=== PATIENT | male | born 1980 | race Hispanic/Latino ===

== ENCOUNTER 2018-08-06 01:00 | Emergency (ER) | payer MEDICARE ==
[~2018-08-06 01:00] MED LIST: CARV12.511 PO; MACI10TA PO; OMEP40CA37 PO; SEVE800T7 PO
[2018-08-06 01:56] LABS: BASOPHILS % (AUTO) 1.5 % (0.0-5.0); EOSINOPHILS % (AUTO) 7.1 % (0.0-8.0); HEMATOCRIT 29.7 % (42-54); LYMPHOCYTES % (AUTO) 16.5 % (21.0-51.0); MEAN CORPUSCULAR HEMOGLOBIN 32.6 pg (27.0-33.0); MEAN CORPUSCULAR HGB CONC 33.9 g/dL (32.0-36.0); MEAN CORPUSCULAR VOLUME 96.3 fL (79-99); MONOCYTES % (AUTO) 8.9 % (3.0-13.0); NUCLEATED RED BLOOD CELLS 0.1 % (0.0-0.19); PLATELET COUNT (AUTO) 108 K/uL (130-400); RED BLOOD CELL COUNT(AUTO) 3.08 MIL/uL (4.50-6.20); RED CELL DISTRIBUTION WIDTH 15.6 % (11.0-15.5); WHITE BLOOD COUNT (AUTO) 4.7 K/uL (4.8-10.8)
[2018-08-06 02:05] LABS: POTASSIUM 3.9 mmol/L (3.5-5.1)
[2018-08-06 02:16] LABS: PLATELET MORPHOLOGY COMMENT LARGE PLTS PRESENT
== END 2018-08-06 02:33 | disposition home or self-care (01) ==
LOC: EDH 01:00
DX: T82.838A Hemorrhage due to vascular prosthetic devices, implants and grafts, initial encounter (principal); N18.6 End stage renal disease; Z88.6 Allergy status to analgesic agent; Z99.2 Dependence on renal dialysis
CPT/HCPCS: 36415; 80048; 85025

== ENCOUNTER 2018-11-01 15:55 | Emergency (ER) | payer MEDICARE ==
[2018-11-01 16:20] LABS: EOSINOPHILS % (AUTO) 8.1 % (0.0-8.0); HEMATOCRIT 34.9 % (42-54); LYMPHOCYTES % (AUTO) 15.8 % (21.0-51.0); MEAN CORPUSCULAR HEMOGLOBIN 33.9 pg (27.0-33.0); MEAN CORPUSCULAR HGB CONC 34.1 g/dL (32.0-36.0); MEAN CORPUSCULAR VOLUME 99.4 fL (79-99); MONOCYTES % (AUTO) 10.8 % (3.0-13.0); NEUTROPHILS % (AUTO) 64.3 % (40.0-77.0); NUCLEATED RED BLOOD CELLS 0.1 % (0.0-0.19); PLATELET COUNT (AUTO) 131 K/uL (130-400); RED BLOOD CELL COUNT(AUTO) 3.51 MIL/uL (4.50-6.20); RED CELL DISTRIBUTION WIDTH 15.5 % (11.0-15.5); WHITE BLOOD COUNT (AUTO) 4.8 K/uL (4.8-10.8)
[2018-11-01 16:35] LABS: CREATININE 7.3 mg/dL (0.5-1.5); POTASSIUM 3.7 mmol/L (3.5-5.1)
[2018-11-01 16:38] LABS: INR 2.08 (0.85-1.15); PARTIAL THROMBOPLASTIN TIME 33.8 SEC (26.3-35.5); PROTHROMBIN TIME 21.5 SEC (9.6-11.6)
[2018-11-01 16:40] LABS: ALBUMIN 3.5 g/dL (3.5-5.0); BILIRUBIN,TOTAL 0.7 mg/dL (0.2-1.0); TOTAL PROTEIN, SERUM 8.9 g/dL (6.0-8.3)
[2018-11-01] MEDS ORDERED: NITROGLYCERIN 1GM/1 INCH PACKET TD ONE (17:12)
== END 2018-11-01 23:11 | disposition home or self-care (01) ==
LOC: EDH 15:55
DX: N18.9 Chronic kidney disease, unspecified (principal); R07.89 Other chest pain; K74.60 Unspecified cirrhosis of liver; I48.91 Unspecified atrial fibrillation; I50.9 Heart failure, unspecified; Z99.2 Dependence on renal dialysis; Z88.6 Allergy status to analgesic agent
CPT/HCPCS: 36415; 71045; 80053; 84484; 85025; 85610; 85730; 93005

== ENCOUNTER → 2018-12-16 | Outpatient (CLI) | payer MEDICARE ==
[~2018-12-16] MED LIST changes: +OMEP40CA13 PO; -OMEP40CA37 PO
== END | disposition home or self-care (01) ==
LOC: SHCH 08:28
PROVIDERS: ATTEND Internal Medicine Cardiovascular Disease
DX: I27.20 Pulmonary hypertension, unspecified (principal)
CPT/HCPCS: 93306

== ENCOUNTER 2019-08-08 09:14 | Inpatient (IN) | payer MEDICARE ==
[~2019-08-08] VITALS: Ht 170.2 cm; Wt 70.5 kg
[~2019-08-08 09:14] MED LIST changes: +APIX5TAB PO; +CARV25TA PO; +NITR0.4T50 SL; +TRAZ-187 PO
[2019-08-08 09:44] LABS: EOSINOPHILS % (AUTO) 5.9 % (0.0-8.0); LYMPHOCYTES % (AUTO) 23.3 % (21.0-51.0); MEAN CORPUSCULAR HEMOGLOBIN 33.3 pg (27.0-33.0); MEAN CORPUSCULAR HGB CONC 31.5 g/dL (32.0-36.0); MEAN CORPUSCULAR VOLUME 105.9 fL (79-99); MONOCYTES % (AUTO) 7.7 % (3.0-13.0); NEUTROPHILS % (AUTO) 61.6 % (40.0-77.0); PLATELET COUNT (AUTO) 227 K/uL (130-400); RED BLOOD CELL COUNT(AUTO) 1.53 MIL/uL (4.50-6.20); RED CELL DISTRIBUTION WIDTH 22.6 % (11.0-15.5)
[2019-08-08 09:54] LABS: HEMATOCRIT 16.2 % (42-54)
[2019-08-08 10:00] LABS: INR 1.18 (0.85-1.15); PARTIAL THROMBOPLASTIN TIME 27.8 SEC (26.3-35.5); PROTHROMBIN TIME 12.7 SEC (9.6-11.6)
[2019-08-08 10:11] LABS: ALBUMIN 2.7 g/dL (3.5-5.0); ASPARTATE AMINOTRANSFERASE 8 U/L (10-37); BILIRUBIN,TOTAL 0.4 mg/dL (0.2-1.0); CARBON DIOXIDE 26 mmol/L (21-32); CHLORIDE 101 mmol/L (101-111); GLOMERULAR FILTR. RATE CALC 5 mL/min (>60); GLUCOSE,RANDOM 89 mg/dL (70-105); SODIUM SERUM 138 mmol/L (136-145); TOTAL PROTEIN, SERUM 6.9 g/dL (6.0-8.3); UREA NITROGEN, BLOOD 52 mg/dL (7-18)
[2019-08-08 10:12] LABS: ALANINE AMINOTRANSFERASE < 6 U/L (12-78)
[2019-08-08 10:14] LABS: CREATININE 11.1 mg/dL (0.5-1.5)
[2019-08-08] MEDS ORDERED: FAMOTIDINE/PF 20 MG/2 ML VIAL IV ONE (10:54)
[2019-08-08] MEDS ORDERED: ACETAMINOPHEN 325 MG TAB PO PRN (12:45)
[2019-08-08] MEDS ORDERED: ONDANSETRON HCL 4 MG/2 ML VIAL IVP PRN (12:45)
[2019-08-08] MEDS ORDERED: SODIUM CHLORIDE 0.9% 10 ML VIAL IVP PRN (12:45)
[2019-08-08] MEDS: PANTOPRAZOLE 40 MG/VIAL IVP SCH (14:00)
[2019-08-08] MEDS ORDERED: SODIUM CHLORIDE 0.9% 250 ML IV ONE (14:37)
--- NOTE | 2019-08-08 20:30 | NUR ---
ADMIT PT ADMITTED TO ROOM 321, AAOX3. HD NURSE ALREADY SET UP IN ROOM FOR TREATMENT. ADMISSION CARE DONE. ADMISSION DATA BASE COMPLETED. ORIENTED TO ROOM AND UNIT. IN FOR MORE CARE AND MANAGEMENT. Addendum: 08/08/19 at 2229 by KAREN MASON RN RN Amended: Links added.
[2019-08-08] MEDS ORDERED: OMEP40CA13 PO (20:59)
--- NOTE | 2019-08-08 21:25 | NUR ---
[facility] CHECKED UNIT OF PRBC WITH DEB HICKS. UNIT GIVEN TO HD NURSE FOR INFUSION.
--- NOTE | 2019-08-08 22:25 | NUR ---
COMPLETED HD NURSE INFORMED RAILROAD ENGINEER THAT BLOOD TRANSFUSION IS COMPLETED WITHOUT ANY UNTOWARD S/SX. HD TREATMENT STILL ONGOING AT THIS TIME. PT RESTING IN BED WELL. NO NOTED DISTRESS.
[2019-08-08 23:29] VITALS: BP 129/50
--- NOTE | 2019-08-08 23:52 | NUR ---
DONE HD NURSE INFORMS BI SOLUTIONS ARCHITECT THAT TREATMENT IS DONE AND 2.7 LI WAS TAKEN OUT.
[2019-08-09] MEDS: CARVEDILOL 12.5 MG TABLET PO SCH ×3 (00:55→20:40)
--- NOTE | 2019-08-09 02:00 | NUR ---
ROUNDS PT RESTING IN BED, DENIES ANY NEEDS AT THIS TIME. NO DISTRESS NOTED. KEPT COMFORTABLE AND RESTED. ENCOURAGED TO BE COMFORTABLE TO SLEEP. WILL MONITOR PT. CALL LIGHT WITHIN REACH.
[2019-08-09 03:32] VITALS: BP 115/68
[2019-08-09 04:24] LABS: MEAN CORPUSCULAR HEMOGLOBIN 31.3 pg (27.0-33.0); MEAN CORPUSCULAR VOLUME 94.8 fL (79-99); RED BLOOD CELL COUNT(AUTO) 2.11 MIL/uL (4.50-6.20); RED CELL DISTRIBUTION WIDTH 23.2 % (11.0-15.5); WHITE BLOOD COUNT (AUTO) 3.5 K/uL (4.8-10.8)
[2019-08-09 04:50] LABS: CREATININE 7.1 mg/dL (0.5-1.5); PHOSPHORUS 3.9 mg/dL (2.5-4.9); POTASSIUM 3.2 mmol/L (3.5-5.1)
--- NOTE | 2019-08-09 05:34 | NUR ---
PAGED DR HICKS PAGED VIA ANSWERING SERVICE TO REFER CRITICAL VALUES OF H/H=6.6 AND 20, AWAITING CALL BACK.
[2019-08-09 08:57] VITALS: BP 116/51
[2019-08-09] MEDS ORDERED: SODIUM CHLORIDE 0.9% 250 ML IV ONE (09:15)
[2019-08-09] MEDS: PANTOPRAZOLE 40 MG/VIAL IVP SCH (09:33)
[2019-08-09 12:10] VITALS: BP 134/66
--- NOTE | 2019-08-09 12:54 | NUR ---
DCP CM met with pt discussed dc plans. Pt is independent prior to admission, lives at home with spouse. Pt has a walker, goes to [facility]. Denies any other equipments/services. Feels safe to go back home, still drives, spouse able to assist with transportation and needs as necessary. DC plan to home once stable. CM to cont to follow up. Addendum: 08/09/19 at 1256 by YUKI PISANO LVN CM Amended: Links added.
[2019-08-09 16:30] VITALS: BP 164/84
[2019-08-09] MEDS ORDERED: PEG 3350/NA SULF,BICARB,CL/KCL 4000 ML SOLN PO ONE (17:00)
[2019-08-09] MEDS ORDERED: PEG 3350/NA SULF,BICARB,CL/KCL 4000 ML SOLN ONE (18:04)
[2019-08-09 19:45] VITALS: BP 122/69
[2019-08-09 23:48] VITALS: BP 109/43
[2019-08-10] VITALS (23 sets, daily range): BP systolic 107–139; BP diastolic 46–95
[2019-08-10 06:02] LABS: HEMATOCRIT 23.7 % (42-54); MEAN CORPUSCULAR HEMOGLOBIN 30.3 pg (27.0-33.0); MEAN CORPUSCULAR HGB CONC 32.5 g/dL (32.0-36.0); MEAN CORPUSCULAR VOLUME 93.3 fL (79-99); PLATELET COUNT (AUTO) 200 K/uL (130-400); RED BLOOD CELL COUNT(AUTO) 2.54 MIL/uL (4.50-6.20); RED CELL DISTRIBUTION WIDTH 21.4 % (11.0-15.5); WHITE BLOOD COUNT (AUTO) 4.1 K/uL (4.8-10.8)
[2019-08-10 06:18] LABS: POTASSIUM 3.8 mmol/L (3.5-5.1)
[2019-08-10 06:44] LABS: BASOPHILS % (MANUAL) 4 % (0-2); EOSINOPHILS % (MANUAL) 9 % (1-6); LYMPHOCYTES % (MANUAL) 18 % (22-44); MONOCYTES % (MANUAL) 10 % (2-9); SEGMENTED NEUTROPHILS % 59 % (40-70)
[2019-08-10 06:45] LABS: MAN.DIFF COMMENT-IMPRESSION MANUAL DIFFERENTIAL; PLATELET MORPHOLOGY COMMENT ADEQUATE
[2019-08-10 07:02] LABS: CREATININE 9.3 mg/dL (0.5-1.5)
[2019-08-10] MEDS ORDERED: PROPOFOL 10 MG/ML 20ML VIAL IV ONE (08:37)
[2019-08-10] MEDS ORDERED: EPINEPHRINE 1 MG/ML AMPULE ONE (08:43)
[2019-08-10] MEDS: PANTOPRAZOLE 40 MG/VIAL IVP SCH (09:51)
[2019-08-10] MEDS: CARVEDILOL 12.5 MG TABLET PO SCH ×2 (09:52→20:27)
[2019-08-10 10:12] LABS: HEPATITIS A ANTIBODY IGM Negative (Negative); HEPATITIS B CORE IGM Negative (Negative); HEPATITIS Bs ANTIGEN SCREEN P Negative (Negative)
--- NOTE | 2019-08-10 14:22 | NUR ---
RD NOTIFICATION Pt admitted for ESRD, GI Bleed. Pt with Full Liquid Diet order in place. Pending EGD, Colonoscopy per EMR. Pt receiving hemodialysis at time of visit. No report of GI distress. RD to follow up with nutrition education. Recommend Heart healthy, Renal Dialysis Diet order when medically feasible RD to follow up with Nutrition education RD to continue to monitor. Please notify as additional nutrition concerns arise. Thank you. Addendum: 08/10/19 at [address] RD Amended: Links added.
--- NOTE | 2019-08-10 15:20 | NUR ---
143 BPCI Letter given to patient.
--- NOTE | 2019-08-10 15:51 | NUR ---
NUTRITION EDUCATION RODERICK provided Dialysis Nutrition Education to Pt. RD reviewed reference materials and handouts. Pt denies need for Cirrhosis nutrition education, declines reference materials. RODERICK answered all of Pt questions. RD to follow up. Addendum: 08/10/19 at [address] Amended: Links added.
[2019-08-10] MEDS: EPOETIN ALFA 10,000 UNIT/ML VIAL SQ SCH (17:13)
[2019-08-11 03:50] VITALS: BP 107/48
[2019-08-11 05:33] LABS: MEAN CORPUSCULAR HEMOGLOBIN 31.2 pg (27.0-33.0); MEAN CORPUSCULAR HGB CONC 32.9 g/dL (32.0-36.0); MEAN CORPUSCULAR VOLUME 94.9 fL (79-99); RED BLOOD CELL COUNT(AUTO) 2.53 MIL/uL (4.50-6.20); RED CELL DISTRIBUTION WIDTH 20.1 % (11.0-15.5); WHITE BLOOD COUNT (AUTO) 3.4 K/uL (4.8-10.8)
[2019-08-11 05:45] LABS: CREATININE 7.2 mg/dL (0.5-1.5); POTASSIUM 3.8 mmol/L (3.5-5.1)
[2019-08-11 08:58] VITALS: BP 136/61
[2019-08-11] MEDS: CARVEDILOL 12.5 MG TABLET PO SCH ×2 (09:37→20:46)
[2019-08-11] MEDS: PANTOPRAZOLE 40 MG/VIAL IVP SCH (09:39)
[2019-08-11 12:09] VITALS: BP 128/56
[2019-08-11 16:10] VITALS: BP 135/48
[2019-08-11 19:31] VITALS: BP 117/58
[2019-08-11 23:35] VITALS: BP 109/46
[2019-08-12 03:54] VITALS: BP 109/47
[2019-08-12 04:30] LABS: HEMATOCRIT 23.8 % (42-54); MEAN CORPUSCULAR HEMOGLOBIN 30.6 pg (27.0-33.0); MEAN CORPUSCULAR HGB CONC 32.4 g/dL (32.0-36.0); MEAN CORPUSCULAR VOLUME 94.4 fL (79-99); RED BLOOD CELL COUNT(AUTO) 2.52 MIL/uL (4.50-6.20); RED CELL DISTRIBUTION WIDTH 19.3 % (11.0-15.5); WHITE BLOOD COUNT (AUTO) 3.9 K/uL (4.8-10.8)
[2019-08-12 04:44] LABS: PHOSPHORUS 5.7 mg/dL (2.5-4.9); POTASSIUM 3.6 mmol/L (3.5-5.1)
[2019-08-12 04:50] LABS: CREATININE 9.7 mg/dL (0.5-1.5)
[2019-08-12 07:00] VITALS: BP 120/69
--- NOTE | 2019-08-12 07:31 | NUR ---
Patient stable,with ongoing hemodialysis treatment at this time, bedside report given to incoming NOD,using SBAR all questions answered.Patient expressed concerned regarding paracentesis that was scheduled yesterday at the other hospital.Will address issue today.
--- NOTE | 2019-08-12 07:50 | NUR ---
ASSESSMENT ENCOUNTERED PT A&OX3, CALM COOPERATIVE AND DOES NOT APPEAR TO BE IN ANY DISTRESS NOR ANY NEURO DEFICITS PRESENT. PT DENIES PAIN, SOB, NAUSEA. PT IS AMBULATORY, GAIT STEADY AND STRONG WITH STAND BY ASSIST, PT IS PENDING HEMODIALYSIS. CALL LIGHT WITHIN REACH.
[2019-08-12] MEDS: CARVEDILOL 12.5 MG TABLET PO SCH (09:00)
[2019-08-12] MEDS: PANTOPRAZOLE 40 MG/VIAL IVP SCH (09:00)
[2019-08-12 11:00] VITALS: BP 112/63
[2019-08-12] MEDS ORDERED: FOLI1TAB61 PO (13:59)
[2019-08-12] MEDS: EPOETIN ALFA 10,000 UNIT/ML VIAL SQ SCH (16:03)
[2019-08-12] MEDS ORDERED: Vitamin B Complex/Vit C/Folic Acid ONE (16:12)
--- NOTE | 2019-08-12 16:30 | NUR ---
DISCHARGE INSTRUCTIONS GIVEN, PIV REMOVED AND INTACT, DISCHARGE HOME TO FAMILY VEHICLE VIA WHEELCHAIR
== END 2019-08-12 16:45 | disposition home or self-care (01) | DRG 377 ==
LOC: EDH 09:14 → EDHIP 12:28 → 4DH 20:08
PROVIDERS: ADMIT Internal Medicine Nephrology; ATTEND Internal Medicine Nephrology
PROC: 30233N1 Transfusion of Nonautologous Red Blood Cells into Peripheral Vein, Percutaneous Approach (ICD-10-PCS; principal; 2019-08-08)
PROC: 5A1D70Z Performance of Urinary Filtration, Intermittent, Less than 6 Hours Per Day (ICD-10-PCS; 2019-08-08)
PROC: 0DBL8ZZ Excision of Transverse Colon, Via Natural or Artificial Opening Endoscopic (ICD-10-PCS; 2019-08-10)
PROC: 0W3P8ZZ Control Bleeding in Gastrointestinal Tract, Via Natural or Artificial Opening Endoscopic (ICD-10-PCS; 2019-08-10)
PROC: 5A1D70Z Performance of Urinary Filtration, Intermittent, Less than 6 Hours Per Day (ICD-10-PCS; 2019-08-10)
PROC: 5A1D70Z Performance of Urinary Filtration, Intermittent, Less than 6 Hours Per Day (ICD-10-PCS; 2019-08-12)
DX: K31.811 Angiodysplasia of stomach and duodenum with bleeding (principal); N18.6 End stage renal disease; Q20.4 Double inlet ventricle; I42.0 Dilated cardiomyopathy; D68.59 Other primary thrombophilia; I12.0 Hypertensive chronic kidney disease with stage 5 chronic kidney disease or end stage renal disease; I48.20 Chronic atrial fibrillation, unspecified; K74.60 Unspecified cirrhosis of liver; I25.10 Atherosclerotic heart disease of native coronary artery without angina pectoris; F32.9 Major depressive disorder, single episode, unspecified; M10.9 Gout, unspecified; D50.0 Iron deficiency anemia secondary to blood loss (chronic); E11.22 Type 2 diabetes mellitus with diabetic chronic kidney disease; I27.20 Pulmonary hypertension, unspecified; I85.10 Secondary esophageal varices without bleeding; K57.90 Diverticulosis of intestine, part unspecified, without perforation or abscess without bleeding; D50.9 Iron deficiency anemia, unspecified; K64.0 First degree hemorrhoids; K63.5 Polyp of colon; K57.30 Diverticulosis of large intestine without perforation or abscess without bleeding; K64.9 Unspecified hemorrhoids; N28.1 Cyst of kidney, acquired; Z79.01 Long term (current) use of anticoagulants; Z86.711 Personal history of pulmonary embolism; Z91.11 Patient's noncompliance with dietary regimen; Z99.2 Dependence on renal dialysis
CPT/HCPCS: 36415; 43255; 45380; 71045; 80048; 80053; 80074; 82270; 82948; 83690; 83880; 84100; 84484; 85025; 85027; 85610; 85730; 86156; 86850; 86870; 86900; 86901; 86922; 88305; 90935; 93005; A4606; C9113; G0378; J0171; J0885; J2405; J2704; J3490; J7030; J7050; P9016

== ENCOUNTER 2019-09-24 14:11 | Inpatient (IN) | payer MEDICARE ==
[~2019-09-24] VITALS: Ht 170.2 cm; Wt 70.1 kg
[~2019-09-24 14:11] MED LIST changes: -APIX5TAB PO; -CARV25TA PO; +FOLI1TAB61 PO; -TRAZ-187 PO
[2019-09-24 15:24] LABS: BASOPHILS % (AUTO) 0.7 % (0.0-5.0); EOSINOPHILS % (AUTO) 5.7 % (0.0-8.0); LYMPHOCYTES % (AUTO) 18.1 % (21.0-51.0); MEAN CORPUSCULAR HEMOGLOBIN 31.8 pg (27.0-33.0); MEAN CORPUSCULAR HGB CONC 31.2 g/dL (32.0-36.0); MEAN CORPUSCULAR VOLUME 101.8 fL (79-99); MONOCYTES % (AUTO) 8.8 % (3.0-13.0); NEUTROPHILS % (AUTO) 66.5 % (40.0-77.0); PLATELET COUNT (AUTO) 201 K/uL (130-400); RED CELL DISTRIBUTION WIDTH 18.8 % (11.0-15.5); WHITE BLOOD COUNT (AUTO) 4.2 K/uL (4.8-10.8)
[2019-09-24 15:30] LABS: HEMATOCRIT 17.3 % (42-54)
[2019-09-24 15:35] LABS: CREATININE 7.8 mg/dL (0.5-1.5)
[2019-09-24 15:36] LABS: INR 1.21 (0.85-1.15)
[2019-09-24 15:39] LABS: ALBUMIN 2.9 g/dL (3.5-5.0); BILIRUBIN,TOTAL 0.4 mg/dL (0.2-1.0); TOTAL PROTEIN, SERUM 7.5 g/dL (6.0-8.3)
[2019-09-24] MEDS ORDERED: CEFTRIAXONE SODIUM 2 GM VIAL ONE (16:25)
[2019-09-24] MEDS ORDERED: SODIUM CHLORIDE 0.9% 50 ML IV ONE (16:28)
[2019-09-24] MEDS ORDERED: PHYTONADIONE 10 MG/1 ML AMP ONE (16:42)
[2019-09-24] MEDS ORDERED: ONDANSETRON HCL 4 MG/2 ML VIAL IV PRN (17:00)
[2019-09-24] MEDS ORDERED: CEFTRIAXONE SODIUM 1 GM IV SCH (17:00)
[2019-09-24] MEDS ORDERED: OCTREOTIDE ACETATE 1,250 MCG in SODIUM CHLORIDE 0.9% 250 ML IV SCH (17:00)
[2019-09-24] MEDS ORDERED: LACTULOSE 20 GM/30 ML UDCUP PO PRN (17:00)
[2019-09-24] MEDS ORDERED: HYDRALAZINE HCL 20 MG/ML VIAL IV PRN (17:00)
[2019-09-24] MEDS ORDERED: PANTOPRAZOLE SODIUM 80 MG in SODIUM CHLORIDE 0.9% 100 ML IV SCH (17:07)
[2019-09-24] MEDS ORDERED: AZITHROMYCIN 500MG+NS 250ML 250 ML IV SCH (17:30)
[2019-09-24] MEDS ORDERED: SODIUM CHLORIDE 0.9% 100 ML IV ONE (17:55)
[2019-09-24] MEDS ORDERED: OCTREOTIDE ACETATE 100 MCG/ML AMP ONE (18:25)
[2019-09-24] MEDS ORDERED: SODIUM CHLORIDE 0.9% 500ML 500 ML IV ONE (20:03)
[2019-09-25 04:01] LABS: EOSINOPHILS % (AUTO) 6.5 % (0.0-8.0); HEMATOCRIT 24.1 % (42-54); LYMPHOCYTES % (AUTO) 16.8 % (21.0-51.0); MEAN CORPUSCULAR HEMOGLOBIN 31.4 pg (27.0-33.0); MEAN CORPUSCULAR VOLUME 98.4 fL (79-99); MONOCYTES % (AUTO) 7.3 % (3.0-13.0); NEUTROPHILS % (AUTO) 68.1 % (40.0-77.0); PLATELET COUNT (AUTO) 206 K/uL (130-400); RED BLOOD CELL COUNT(AUTO) 2.45 MIL/uL (4.50-6.20); RED CELL DISTRIBUTION WIDTH 19.8 % (11.0-15.5); WHITE BLOOD COUNT (AUTO) 5.7 K/uL (4.8-10.8)
[2019-09-25 04:22] LABS: POTASSIUM 5.7 mmol/L (3.5-5.1)
[2019-09-25 04:39] LABS: CREATININE 8.7 mg/dL (0.5-1.5)
[2019-09-25] MEDS ORDERED: MIDODRINE HCL 5 MG TABLET ONE ×3 (05:52→14:47)
[2019-09-25] MEDS ORDERED: SODIUM POLYSTYRENE SULFONATE 15 GM/60 ML ML PO SCH (08:00)
[2019-09-25] MEDS ORDERED: SODIUM POLYSTYRENE SULFONATE 15 GM/60 ML ML ONE (08:22)
[2019-09-25 08:42] LABS: BASOPHILS % (AUTO) 1.3 % (0.0-5.0); HEMATOCRIT 23.8 % (42-54); LYMPHOCYTES % (AUTO) 17.9 % (21.0-51.0); MEAN CORPUSCULAR HEMOGLOBIN 31.3 pg (27.0-33.0); MEAN CORPUSCULAR HGB CONC 31.9 g/dL (32.0-36.0); MEAN CORPUSCULAR VOLUME 97.9 fL (79-99); MONOCYTES % (AUTO) 9.6 % (3.0-13.0); NEUTROPHILS % (AUTO) 63.8 % (40.0-77.0); PLATELET COUNT (AUTO) 208 K/uL (130-400); RED BLOOD CELL COUNT(AUTO) 2.43 MIL/uL (4.50-6.20); RED CELL DISTRIBUTION WIDTH 19.9 % (11.0-15.5); WHITE BLOOD COUNT (AUTO) 4.7 K/uL (4.8-10.8)
[2019-09-25 08:57] LABS: PHOSPHORUS 5.1 mg/dL (2.5-4.9)
[2019-09-25 09:01] LABS: POTASSIUM 6.3 mmol/L (3.5-5.1)
--- NOTE | 2019-09-25 17:16 | NUR ---
INITIAL SW spoke with patient's spouse, Honey Arriaga. Patient lives with spouse. No home health but does have PHC with [facility] X 15 1/2 hours a week. Dialysis: MWF 5am at [facility]. Patient drives self or family assists with transportation. DME: BPM, oximeter, O2 concentrator/portable, rollator. DME company is [employer]. Patient is able to complete ADL's independently but at times needs help. PCP is Ronald DOUGHERTY. Pharmacy is [facility] in [place]. DCP is home. Addendum: 09/25/19 at 1721 by RATNA MONIQUE SS Amended: Links added.
[2019-09-25 19:27] LABS: BASOPHILS % (AUTO) 1.5 % (0.0-5.0); EOSINOPHILS % (AUTO) 6.9 % (0.0-8.0); HEMATOCRIT 24.4 % (42-54); LYMPHOCYTES % (AUTO) 13.8 % (21.0-51.0); MEAN CORPUSCULAR HEMOGLOBIN 31.7 pg (27.0-33.0); MEAN CORPUSCULAR HGB CONC 32.8 g/dL (32.0-36.0); MEAN CORPUSCULAR VOLUME 96.8 fL (79-99); MONOCYTES % (AUTO) 8.1 % (3.0-13.0); NEUTROPHILS % (AUTO) 69.5 % (40.0-77.0); PLATELET COUNT (AUTO) 224 K/uL (130-400); RED BLOOD CELL COUNT(AUTO) 2.52 MIL/uL (4.50-6.20); RED CELL DISTRIBUTION WIDTH 19.9 % (11.0-15.5); WHITE BLOOD COUNT (AUTO) 5.2 K/uL (4.8-10.8)
[2019-09-25 19:43] LABS: CREATININE 5.5 mg/dL (0.5-1.5); POTASSIUM 3.6 mmol/L (3.5-5.1)
[2019-09-25 19:49] LABS: BILIRUBIN,TOTAL 0.4 mg/dL (0.2-1.0); TOTAL PROTEIN, SERUM 7.8 g/dL (6.0-8.3)
[2019-09-25] MEDS ORDERED: AZITHROMYCIN 500MG+NS 250ML 250 ML IV ONE (20:33)
[2019-09-25] MEDS ORDERED: CEFTRIAXONE SODIUM 1 GM ONE (20:33)
[2019-09-25] MEDS ORDERED: SODIUM CHLORIDE 0.9% 250 ML IV ONE (21:30)
[2019-09-25] MEDS ORDERED: OCTREOTIDE ACETATE 200 MCG/ML 5 ML VIAL ONE (21:35)
[2019-09-26] MEDS ORDERED: MIDODRINE HCL 5 MG TABLET ONE ×2 (00:32→08:48)
[2019-09-26] MEDS ORDERED: SODIUM CHLORIDE 0.9% 100 ML IV ONE (05:21)
[2019-09-26 06:35] LABS: BASOPHILS % (AUTO) 1.5 % (0.0-5.0); EOSINOPHILS % (AUTO) 7.7 % (0.0-8.0); HEMATOCRIT 23.8 % (42-54); MEAN CORPUSCULAR HGB CONC 31.5 g/dL (32.0-36.0); MEAN CORPUSCULAR VOLUME 98.3 fL (79-99); MONOCYTES % (AUTO) 10.7 % (3.0-13.0); NEUTROPHILS % (AUTO) 60.9 % (40.0-77.0); PLATELET COUNT (AUTO) 213 K/uL (130-400); RED BLOOD CELL COUNT(AUTO) 2.42 MIL/uL (4.50-6.20); RED CELL DISTRIBUTION WIDTH 19.8 % (11.0-15.5); WHITE BLOOD COUNT (AUTO) 4.8 K/uL (4.8-10.8)
[2019-09-26 06:57] LABS: ALBUMIN 2.7 g/dL (3.5-5.0); BILIRUBIN,TOTAL 0.4 mg/dL (0.2-1.0); MAGNESIUM 2.1 mg/dL (1.80-2.40); PHOSPHORUS 5.3 mg/dL (2.5-4.9); POTASSIUM 4.2 mmol/L (3.5-5.1); TOTAL PROTEIN, SERUM 6.8 g/dL (6.0-8.3)
[2019-09-26 07:06] LABS: CREATININE 8.1 mg/dL (0.5-1.5)
[2019-09-26] MEDS ORDERED: AZIT500T2 PO (07:41)
--- NOTE | 2019-09-26 09:29 | NUR ---
PT GIVEN HIS PRINTED AND VERBAL DISCHARGE INSTRUCTIONS. VERBALIZES UNDERSTANDING. WILL DC AFTER DIALYSIS TODAY. ER NURSE JANICE BOYD MADE AWARE
== END 2019-09-26 19:47 | disposition home or self-care (01) | DRG 377 ==
LOC: EDH 14:11 → EDHIP 14:34
PROVIDERS: ADMIT Hospitalist; ATTEND Hospitalist
PROC: 30233N1 Transfusion of Nonautologous Red Blood Cells into Peripheral Vein, Percutaneous Approach (ICD-10-PCS; 2019-09-24)
PROC: 5A1D70Z Performance of Urinary Filtration, Intermittent, Less than 6 Hours Per Day (ICD-10-PCS; principal; 2019-09-25)
PROC: 5A1D70Z Performance of Urinary Filtration, Intermittent, Less than 6 Hours Per Day (ICD-10-PCS; 2019-09-26)
DX: K92.2 Gastrointestinal hemorrhage, unspecified (principal); J18.9 Pneumonia, unspecified organism; N18.6 End stage renal disease; I48.21 Permanent atrial fibrillation; D64.9 Anemia, unspecified; E87.5 Hyperkalemia; K74.60 Unspecified cirrhosis of liver; Z99.2 Dependence on renal dialysis; Z79.01 Long term (current) use of anticoagulants; Z86.711 Personal history of pulmonary embolism; Z95.1 Presence of aortocoronary bypass graft; Z88.8 Allergy status to other drugs, medicaments and biological substances; Z82.0 Family history of epilepsy and other diseases of the nervous system; Z82.3 Family history of stroke; Z83.3 Family history of diabetes mellitus; Z82.5 Family history of asthma and other chronic lower respiratory diseases; Z82.49 Family history of ischemic heart disease and other diseases of the circulatory system
CPT/HCPCS: 36415; 71045; 80048; 80053; 82270; 83735; 84100; 84132; 84484; 85025; 85610; 85730; 86156; 86850; 86870; 86900; 86901; 86922; 90935; 93005; C9113; G0378; J0456; J0696; J2354; J3430; J7040; J7050; P9016

== ENCOUNTER 2019-12-29 11:20 | Inpatient (IN) | payer MEDICARE ==
[~2019-12-29] VITALS: Ht 170.2 cm; Wt 64.0 kg
[~2019-12-29 11:20] MED LIST changes: +AZIT500T2 PO
[2019-12-29 12:07] LABS: BASOPHILS % (AUTO) 1.5 % (0.0-5.0); EOSINOPHILS % (AUTO) 7.9 % (0.0-8.0); HEMATOCRIT 36.1 % (42-54); LYMPHOCYTES % (AUTO) 19.8 % (21.0-51.0); MEAN CORPUSCULAR HEMOGLOBIN 29.5 pg (27.0-33.0); MEAN CORPUSCULAR HGB CONC 31.9 g/dL (32.0-36.0); MEAN CORPUSCULAR VOLUME 92.6 fL (79-99); MONOCYTES % (AUTO) 9.9 % (3.0-13.0); NEUTROPHILS % (AUTO) 60.6 % (40.0-77.0); PLATELET COUNT (AUTO) 148 K/uL (130-400); WHITE BLOOD COUNT (AUTO) 3.9 K/uL (4.8-10.8)
[2019-12-29] MEDS ORDERED: MORPHINE SULFATE 4 MG/1ML SYG ONE (12:17)
[2019-12-29] MEDS ORDERED: ONDANSETRON HCL 4 MG/2 ML VIAL ONE (12:17)
[2019-12-29 12:23] LABS: ALBUMIN 3.4 g/dL (3.5-5.0); BILIRUBIN,TOTAL 0.6 mg/dL (0.2-1.0); POTASSIUM 3.8 mmol/L (3.5-5.1); TOTAL PROTEIN, SERUM 8.8 g/dL (6.0-8.3)
[2019-12-29] MEDS ORDERED: ONDANSETRON HCL 4 MG/2 ML VIAL IV PRN (13:00)
[2019-12-29] MEDS: SODIUM CHLORIDE 0.9% 1000ML 1,000 ML IV SCH (13:00)
[2019-12-29] MEDS ORDERED: LACTULOSE 20 GM/30 ML UDCUP PO PRN (13:00)
[2019-12-29] MEDS ORDERED: NITROGLYCERIN 0.4 MG SL TAB SL PRN (13:00)
[2019-12-29 13:14] LABS: CREATININE 8.3 mg/dL (0.5-1.5)
[2019-12-29] MEDS ORDERED: ZOSYN 3.375GM+NS 50ML 50 ML IV ONE (14:09)
[2019-12-29 14:27] LABS: INR 1.21 (0.85-1.15)
[2019-12-29 16:29] VITALS: BP 110/74
[2019-12-29 19:00] VITALS: BP 109/58
[2019-12-29] MEDS ORDERED: TRAZ-185 PO (19:23)
[2019-12-29] MEDS ORDERED: DOXY20TA3 PO (19:23)
[2019-12-29] MEDS: FAMOTIDINE/PF 20 MG/2 ML VIAL IV SCH (20:28)
[2019-12-30] VITALS (30 sets, daily range): BP systolic 93–131; BP diastolic 55–75
[2019-12-30] MEDS: MORPHINE SULFATE 2 MG/ML 1ML SYG IVP PRN ×3 (02:28→17:33)
[2019-12-30 05:44] LABS: BASOPHILS % (AUTO) 1.3 % (0.0-5.0); EOSINOPHILS % (AUTO) 10.1 % (0.0-8.0); HEMATOCRIT 30.9 % (42-54); LYMPHOCYTES % (AUTO) 20.2 % (21.0-51.0); MEAN CORPUSCULAR HEMOGLOBIN 29.5 pg (27.0-33.0); MONOCYTES % (AUTO) 10.9 % (3.0-13.0); NEUTROPHILS % (AUTO) 57.2 % (40.0-77.0); PLATELET COUNT (AUTO) 127 K/uL (130-400); RED BLOOD CELL COUNT(AUTO) 3.36 MIL/uL (4.50-6.20); RED CELL DISTRIBUTION WIDTH 15.3 % (11.0-15.5); WHITE BLOOD COUNT (AUTO) 3.9 K/uL (4.8-10.8)
[2019-12-30 05:55] LABS: ALBUMIN 2.8 g/dL (3.5-5.0); BILIRUBIN,TOTAL 0.5 mg/dL (0.2-1.0); POTASSIUM 4.5 mmol/L (3.5-5.1); TOTAL PROTEIN, SERUM 7.5 g/dL (6.0-8.3)
[2019-12-30 06:16] LABS: CREATININE 9.9 mg/dL (0.5-1.5)
[2019-12-30] MEDS ORDERED: KETAMINE 50MG/ML SYRINGE 50 MG/ML DISP.SYRIN IV ONE (08:01)
[2019-12-30] MEDS ORDERED: PROPOFOL 10 MG/ML 20ML VIAL IV ONE (08:01)
[2019-12-30] MEDS ORDERED: ROCURONIUM 10MG/1ML SYR 10 MG/ML ML ONE (08:01)
[2019-12-30] MEDS: SODIUM CHLORIDE 0.9% 1000ML 1,000 ML IV SCH (08:19)
[2019-12-30] MEDS: CARVEDILOL 12.5 MG TABLET PO SCH ×2 (09:15→20:14)
[2019-12-30] MEDS: FAMOTIDINE/PF 20 MG/2 ML VIAL IV SCH ×2 (09:15→20:14)
[2019-12-30] MEDS ORDERED: SODIUM CHLORIDE 0.9% 500ML 500 ML IV SCH (10:00)
--- NOTE | 2019-12-30 10:13 | NUR ---
PT IN HOLDING AREA RM 2. SALVATORE LOAN COUNSELOR AT BEDSIDE. INFORMED LOAN COUNSELOR OF GLUCOSE 57. IV RAJEEV KVO. NO ACUTE DISTRESS NOTED
[2019-12-30] MEDS ORDERED: SUCCINYLCHOLINE CHLORIDE 20 MG/ML 10 ML VIAL ONE (10:30)
[2019-12-30] MEDS ORDERED: DEXTROSE 50%-WATER 50 ML DISP.SYRIN IV SCH (10:30)
[2019-12-30] MEDS ORDERED: CEFAZOLIN SODIUM 1 GM VIAL ONE (11:04)
[2019-12-30] MEDS ORDERED: BUPIVACAINE/PF 0.5% 30ML VIAL ONE (11:04)
[2019-12-30] MEDS ORDERED: GLYCOPYRROLATE 1 MG/5 ML SYRINGE ONE (11:08)
[2019-12-30] MEDS ORDERED: NEOSTIGMINE 5MG/5ML SYR IV ONE (11:08)
[2019-12-30] MEDS ORDERED: SUGAMMADEX SODIUM 200 MG/2 ML VIAL IV ONE (11:30)
[2019-12-30] MEDS ORDERED: ESMOLOL HCL 10 MG/ML 10 ML VIAL ONE (11:34)
[2019-12-30] MEDS ORDERED: MEPERIDINE-PF 25 MG/ML SYG ONE (11:56)
[2019-12-30] MEDS ORDERED: NITROGLYCERIN 0.4 MG SL TAB SL PRN (14:15)
--- NOTE | 2019-12-30 14:56 | NUR ---
DCP CM met with pt and spouse discussed dc plans. Pt is independent prior to admission, lives at home with spouse and kids. Pt has oxygen portable and stationary, provider 16hrs/wk. Denies any other equipments/services. Feels safe to go back home, spouse able to assist with transportation and needs as necessary. DC plan to home once stable. CM to continue to follow up. Addendum: 12/30/19 at 1458 by YUKI PISANO LVN CM Amended: Links added.
[2019-12-30] MEDS: Vitamin B Complex/Vit C/Folic Acid PO SCH (17:32)
[2019-12-30] MEDS: SEVELAMER HCL 800 MG TABLET PO SCH (17:32)
[2019-12-30] MEDS: PANTOPRAZOLE SODIUM 40 MG TABLET.DR PO SCH (20:13)
[2019-12-30] MEDS: CEFAZOLIN SODIUM 1 GM VIAL IVP SCH (20:13)
[2019-12-30] MEDS: TRAMADOL HCL 50 MG TABLET PO PRN (20:15)
[2019-12-30] MEDS: MACITENTAN 10 MG PO SCH (21:00)
[2019-12-30] MEDS ORDERED: METOPROLOL TARTRATE 1 MG/ML 5ML VIAL IV SCH (22:30)
[2019-12-30] MEDS ORDERED: METOPROLOL TARTRATE 1 MG/ML 5ML VIAL IV ONE (22:37)
--- NOTE | 2019-12-30 23:12 | NUR ---
PATIENT NOTED WITH A HEART RATE OF 225 AFIB WITH GABRIEL RAM FNP NOTIFIED AND AWARE. NEW ORDERS RECEIVED AND CARRIED OUT. METOPROL 5MG GIVEN IV SLOWLY. 2240 BLOOD PRESSURE 106/64 WITH A PULSE OF 127. 2242 94/57 PULSE 100. 2244 100/51 WITH A PULSE OF 105. 2252 98/59 WITH A PULSE OF 108. 2300 BLOOD PRESSURE 102/63 WITH A HEART RATE OF 110 AT THIS TIME. RESP EVEN AND UNLABORED. NO SOB NOTED. ON ROOM AIR. PATIENT HAS NO QUESTIONS OR CONCERNS AT THIS TIME. WILL CONTINUE TO BE OBSERVED CLOSELY. Addendum: 12/31/19 at 0026 by ROSANA FITZGERALD RN RN Amended: Links added.
[2019-12-31] VITALS (7 sets, daily range): BP systolic 80–107; BP diastolic 52–67
[2019-12-31] MEDS: CEFAZOLIN SODIUM 1 GM VIAL IVP SCH (04:07)
[2019-12-31 05:37] LABS: EOSINOPHILS % (AUTO) 3.6 % (0.0-8.0); HEMATOCRIT 33.2 % (42-54); LYMPHOCYTES % (AUTO) 12.6 % (21.0-51.0); MEAN CORPUSCULAR HGB CONC 32.2 g/dL (32.0-36.0); MONOCYTES % (AUTO) 10.1 % (3.0-13.0); NEUTROPHILS % (AUTO) 72.4 % (40.0-77.0); PLATELET COUNT (AUTO) 155 K/uL (130-400); RED BLOOD CELL COUNT(AUTO) 3.57 MIL/uL (4.50-6.20); RED CELL DISTRIBUTION WIDTH 15.5 % (11.0-15.5)
[2019-12-31 06:16] LABS: ALBUMIN 3.1 g/dL (3.5-5.0); ASPARTATE AMINOTRANSFERASE 11 U/L (10-37); BILIRUBIN,TOTAL 0.5 mg/dL (0.2-1.0); CARBON DIOXIDE 28 mmol/L (21-32); CHLORIDE 96 mmol/L (101-111); GLOMERULAR FILTR. RATE CALC 6 mL/min (>60); GLUCOSE,RANDOM 75 mg/dL (70-105); POTASSIUM 4.9 mmol/L (3.5-5.1); SODIUM SERUM 135 mmol/L (136-145); TOTAL PROTEIN, SERUM 8.3 g/dL (6.0-8.3); UREA NITROGEN, BLOOD 36 mg/dL (7-18)
[2019-12-31 06:29] LABS: CREATININE 9.6 mg/dL (0.5-1.5)
[2019-12-31 06:46] LABS: ALANINE AMINOTRANSFERASE < 6 U/L (12-78)
[2019-12-31] MEDS: CARVEDILOL 12.5 MG TABLET PO SCH ×2 (07:47→20:58)
[2019-12-31] MEDS: TRAMADOL HCL 50 MG TABLET PO PRN ×2 (07:48→20:58)
[2019-12-31] MEDS: FAMOTIDINE/PF 20 MG/2 ML VIAL IV SCH ×2 (07:48→20:57)
[2019-12-31] MEDS: SEVELAMER HCL 800 MG TABLET PO SCH ×3 (07:48→18:49)
[2019-12-31 10:12] LABS: HEPATITIS A ANTIBODY IGM Negative (Negative); HEPATITIS B CORE IGM Negative (Negative); HEPATITIS Bs ANTIGEN SCREEN P Negative (Negative)
--- NOTE | 2019-12-31 12:05 | NUR ---
NOTE SPOKE TO DR BARBOUR REGARDING PATIENT RUN OF AFIB RVR LAST NIGHT. WENT OVER LABS, VS AND HE ORDERED TO CHECK MAGNESIUM LEVEL. HE WILL FOLLOW UP WITH THE PATIENT.
[2019-12-31] MEDS: Vitamin B Complex/Vit C/Folic Acid PO SCH (18:49)
[2019-12-31] MEDS: MACITENTAN 10 MG PO SCH (20:58)
[2019-12-31] MEDS: PANTOPRAZOLE SODIUM 40 MG TABLET.DR PO SCH (20:58)
[2020-01-01 03:38] VITALS: BP 92/63
[2020-01-01 05:36] LABS: BASOPHILS % (AUTO) 0.3 % (0.0-5.0); EOSINOPHILS % (AUTO) 4.5 % (0.0-8.0); LYMPHOCYTES % (AUTO) 5.5 % (21.0-51.0); MEAN CORPUSCULAR HEMOGLOBIN 29.4 pg (27.0-33.0); MEAN CORPUSCULAR HGB CONC 32.2 g/dL (32.0-36.0); MEAN CORPUSCULAR VOLUME 91.4 fL (79-99); MONOCYTES % (AUTO) 4.7 % (3.0-13.0); NEUTROPHILS % (AUTO) 84.5 % (40.0-77.0); PLATELET COUNT (AUTO) 156 K/uL (130-400); RED CELL DISTRIBUTION WIDTH 15.2 % (11.0-15.5); WHITE BLOOD COUNT (AUTO) 6.4 K/uL (4.8-10.8)
[2020-01-01 06:12] LABS: ALBUMIN 2.8 g/dL (3.5-5.0); ASPARTATE AMINOTRANSFERASE 11 U/L (10-37); BILIRUBIN,TOTAL 0.4 mg/dL (0.2-1.0); CARBON DIOXIDE 27 mmol/L (21-32); CHLORIDE 95 mmol/L (101-111); GLOMERULAR FILTR. RATE CALC 5 mL/min (>60); GLUCOSE,RANDOM 86 mg/dL (70-105); POTASSIUM 4.9 mmol/L (3.5-5.1); SODIUM SERUM 133 mmol/L (136-145); TOTAL PROTEIN, SERUM 7.8 g/dL (6.0-8.3); UREA NITROGEN, BLOOD 48 mg/dL (7-18)
[2020-01-01 06:13] LABS: ALANINE AMINOTRANSFERASE < 6 U/L (12-78)
[2020-01-01 06:14] LABS: CREATININE 11.9 mg/dL (0.5-1.5)
[2020-01-01 08:19] VITALS: BP 96/64
[2020-01-01] MEDS: SEVELAMER HCL 800 MG TABLET PO SCH ×3 (08:48→17:02)
[2020-01-01] MEDS: CARVEDILOL 12.5 MG TABLET PO SCH ×2 (08:48→20:15)
[2020-01-01] MEDS: FAMOTIDINE/PF 20 MG/2 ML VIAL IV SCH ×2 (08:49→20:15)
[2020-01-01 11:57] VITALS: BP 89/53
[2020-01-01] MEDS: LACTULOSE 20 GM/30 ML UDCUP PO PRN (12:36)
[2020-01-01 16:16] VITALS: BP 92/58
[2020-01-01] MEDS: Vitamin B Complex/Vit C/Folic Acid PO SCH (17:02)
--- NOTE | 2020-01-01 18:20 | NUR ---
NOTE STABLE THROUGHOUT THE DAY. DENIES PAIN. INCISION TO ABDOMEN IS OPEN TO AIR AT THIS TIME. HE WAS GIVEN PERMISSION FROM SURGERY TO GET INCISION WET. ALSO FROM THEIR STAND POINT HE CAN GO HOME AND FOLLOW UP WITH DR CONTRERAS IN 2 WEEKS. HAS NOT HAD BM. PASSING GAS WAS GIVEN LACTULOSE.
[2020-01-01 19:58] VITALS: BP 107/51
[2020-01-01] MEDS: PANTOPRAZOLE SODIUM 40 MG TABLET.DR PO SCH (20:15)
[2020-01-01] MEDS: TRAMADOL HCL 50 MG TABLET PO PRN (20:16)
[2020-01-01] MEDS: DOXYCYCLINE HYCLATE 20 MG PO SCH (20:17)
[2020-01-01] MEDS: MACITENTAN 10 MG PO SCH (20:17)
[2020-01-01 23:49] VITALS: BP 94/58
[2020-01-02 03:54] VITALS: BP 92/49
[2020-01-02 05:49] LABS: BASOPHILS % (AUTO) 0.6 % (0.0-5.0); EOSINOPHILS % (AUTO) 6.8 % (0.0-8.0); HEMATOCRIT 33.3 % (42-54); LYMPHOCYTES % (AUTO) 9.6 % (21.0-51.0); MEAN CORPUSCULAR HEMOGLOBIN 29.4 pg (27.0-33.0); MEAN CORPUSCULAR HGB CONC 32.1 g/dL (32.0-36.0); MEAN CORPUSCULAR VOLUME 91.5 fL (79-99); MONOCYTES % (AUTO) 8.2 % (3.0-13.0); NEUTROPHILS % (AUTO) 74.6 % (40.0-77.0); PLATELET COUNT (AUTO) 155 K/uL (130-400); RED BLOOD CELL COUNT(AUTO) 3.64 MIL/uL (4.50-6.20); RED CELL DISTRIBUTION WIDTH 15.4 % (11.0-15.5)
[2020-01-02 06:10] LABS: MAGNESIUM 2.2 mg/dL (1.80-2.40)
[2020-01-02 06:15] LABS: CREATININE 14.5 mg/dL (0.5-1.5)
--- NOTE | 2020-01-02 07:49 | NUR ---
DR. PEREZ IN TO SEE PT. ADJUSTED BP MED.
[2020-01-02] MEDS: FAMOTIDINE/PF 20 MG/2 ML VIAL IV SCH ×2 (08:00→21:46)
[2020-01-02] MEDS: SEVELAMER HCL 800 MG TABLET PO SCH ×3 (08:01→17:45)
[2020-01-02] MEDS: CARVEDILOL 12.5 MG TABLET PO SCH ×2 (08:02→21:45)
--- NOTE | 2020-01-02 08:03 | NUR ---
AM HEIDY DAS, BP 92/49.
[2020-01-02 08:11] VITALS: BP 97/46
--- NOTE | 2020-01-02 10:00 | NUR ---
WOUND LOW MID ABD. CLEAN, CLOSED WITH TIBURCIO IN PLACE, NO DRAINAGE ,REDNESS, OR SWELLING . HAS ABDMaco RAPP ON
[2020-01-02 11:58] VITALS: BP 102/61
[2020-01-02] MEDS: LACTULOSE 20 GM/30 ML UDCUP PO PRN (12:24)
--- NOTE | 2020-01-02 12:30 | NUR ---
IN TO SEE PT, FROM SURGICAL STANDPOINT CAN BE DISCHARGED AND FOLLOW UP WITH HM IN CLINIC 2 WEEKS. RX FOR TYLENOL WITH CODEINE IN CHART
--- NOTE | 2020-01-02 16:45 | NUR ---
COMPLETED 3 HRS. OF H-D, 2 LITERS FLUID REMOVED, TOLERATED WELL. ABD. REMAINS TIGHT AND DISTENDED.
[2020-01-02 16:57] VITALS: BP 93/43
[2020-01-02] MEDS: Vitamin B Complex/Vit C/Folic Acid PO SCH (17:45)
[2020-01-02 20:20] VITALS: BP 93/51
[2020-01-02] MEDS: DOXYCYCLINE HYCLATE 20 MG PO SCH (21:00)
[2020-01-02] MEDS: MACITENTAN 10 MG PO SCH (21:00)
[2020-01-02] MEDS: PANTOPRAZOLE SODIUM 40 MG TABLET.DR PO SCH (21:46)
[2020-01-03 00:24] VITALS: BP 94/44
[2020-01-03 04:28] VITALS: BP 94/49
[2020-01-03 05:45] LABS: HEMATOCRIT 28.9 % (42-54); MEAN CORPUSCULAR HEMOGLOBIN 29.5 pg (27.0-33.0); MEAN CORPUSCULAR HGB CONC 32.5 g/dL (32.0-36.0); MEAN CORPUSCULAR VOLUME 90.6 fL (79-99); PLATELET COUNT (AUTO) 147 K/uL (130-400); RED BLOOD CELL COUNT(AUTO) 3.19 MIL/uL (4.50-6.20); RED CELL DISTRIBUTION WIDTH 15.1 % (11.0-15.5); WHITE BLOOD COUNT (AUTO) 4.5 K/uL (4.8-10.8)
[2020-01-03 06:04] LABS: PHOSPHORUS 4.9 mg/dL (2.5-4.9); POTASSIUM 4.1 mmol/L (3.5-5.1)
[2020-01-03 06:17] LABS: BAND NEUTROPHILS % (MANUAL) 3 % (0-2); BASOPHILS % (MANUAL) 1 % (0-2); EOSINOPHILS % (MANUAL) 9 % (1-6); LYMPHOCYTES % (MANUAL) 2 % (22-44); MAN.DIFF COMMENT-IMPRESSION MANUAL DIFFERENTIAL; MONOCYTES % (MANUAL) 5 % (2-9); REACTIVE LYMPHOCYTES 1 % (0-0); SEGMENTED NEUTROPHILS % 79 % (40-70)
[2020-01-03 06:19] LABS: CREATININE 10.2 mg/dL (0.5-1.5)
[2020-01-03 08:04] VITALS: BP 109/58
[2020-01-03] MEDS: DOXYCYCLINE HYCLATE 20 MG PO SCH (08:10)
[2020-01-03] MEDS: Vitamin B Complex/Vit C/Folic Acid PO SCH (08:15)
[2020-01-03] MEDS: SEVELAMER HCL 800 MG TABLET PO SCH ×2 (08:15→12:30)
[2020-01-03] MEDS: CARVEDILOL 12.5 MG TABLET PO SCH (08:15)
[2020-01-03] MEDS ORDERED: FAMOTIDINE 20MG TAB 20 MG TAB PO SCH (09:00)
[2020-01-03 11:58] VITALS: BP 97/44
== END 2020-01-03 16:40 | disposition home or self-care (01) | DRG 353 ==
LOC: EDH 11:20 → EDHIP 12:46 → 3AH 16:18
PROVIDERS: ADMIT Hospitalist; ATTEND Hospitalist
PROC: 5A1D70Z Performance of Urinary Filtration, Intermittent, Less than 6 Hours Per Day (ICD-10-PCS; 2019-12-30)
PROC: 0WQF0ZZ Repair Abdominal Wall, Open Approach (ICD-10-PCS; principal; 2019-12-30 10:31)
PROC: 5A1D70Z Performance of Urinary Filtration, Intermittent, Less than 6 Hours Per Day (ICD-10-PCS; 2020-01-02)
DX: K42.0 Umbilical hernia with obstruction, without gangrene (principal); N18.6 End stage renal disease; I13.2 Hypertensive heart and chronic kidney disease with heart failure and with stage 5 chronic kidney disease, or end stage renal disease; I48.21 Permanent atrial fibrillation; I50.22 Chronic systolic (congestive) heart failure; R18.8 Other ascites; E11.22 Type 2 diabetes mellitus with diabetic chronic kidney disease; I25.10 Atherosclerotic heart disease of native coronary artery without angina pectoris; K71.7 Toxic liver disease with fibrosis and cirrhosis of liver; I27.20 Pulmonary hypertension, unspecified; T50.905A Adverse effect of unspecified drugs, medicaments and biological substances, initial encounter; Y92.89 Other specified places as the place of occurrence of the external cause; Z99.2 Dependence on renal dialysis; Z95.1 Presence of aortocoronary bypass graft; Z88.6 Allergy status to analgesic agent; Z83.3 Family history of diabetes mellitus; Z82.5 Family history of asthma and other chronic lower respiratory diseases; Z82.49 Family history of ischemic heart disease and other diseases of the circulatory system; Z82.3 Family history of stroke; Z82.0 Family history of epilepsy and other diseases of the nervous system
CPT/HCPCS: 36415; 80048; 80053; 80074; 82150; 82948; 83690; 83735; 84100; 85025; 85610; 87426; 90935; 93005; G0378; J0330; J0690; J2175; J2270; J2405; J2543; J2704; J2710; J3490; J7040; U0003

== ENCOUNTER 2020-09-15 12:34 | Emergency (ER) | payer MEDICARE ==
[~2020-09-15] VITALS: Ht 170.2 cm; Wt 68.0 kg
[~2020-09-15 12:34] MED LIST changes: -AZIT500T2 PO; +DOXY20TA3 PO; -OMEP40CA13 PO; +OMEP40CA21 PO; +TRAZ-185 PO
[2020-09-15 13:07] LABS: EOSINOPHILS % (AUTO) 11.2 % (0.0-8.0); LYMPHOCYTES % (AUTO) 15.6 % (21.0-51.0); MEAN CORPUSCULAR HEMOGLOBIN 32.4 pg (27.0-33.0); MEAN CORPUSCULAR HGB CONC 32.4 g/dL (32.0-36.0); MEAN CORPUSCULAR VOLUME 100.3 fL (79-99); MONOCYTES % (AUTO) 11.2 % (3.0-13.0); NEUTROPHILS % (AUTO) 60.7 % (40.0-77.0); PLATELET COUNT (AUTO) 138 K/uL (130-400); RED BLOOD CELL COUNT(AUTO) 3.39 MIL/uL (4.50-6.20); RED CELL DISTRIBUTION WIDTH 15.4 % (11.0-15.5); WHITE BLOOD COUNT (AUTO) 3.8 K/uL (4.8-10.8)
[2020-09-15 13:21] LABS: ALBUMIN 3.2 g/dL (3.5-5.0); BILIRUBIN,TOTAL 0.5 mg/dL (0.2-1.0); TOTAL PROTEIN, SERUM 7.9 g/dL (6.0-8.3)
[2020-09-15 13:27] LABS: CREATININE 8.5 mg/dL (0.5-1.5)
[2020-09-15 13:48] LABS: ABG BASE EXCESS 0.7 mmol/L (-2.0-3.0); ABG HCO3 23.8 mmol/L (21.0-28.0); ABG PCO2 34 mmHg (35-48)
[2020-09-15] MEDS ORDERED: ACETAMINOPHEN WITH CODEINE 1 TAB TAB PO ONE (14:00)
[2020-09-15] MEDS ORDERED: AZIT500T PO (14:51)
[2020-09-15] MEDS ORDERED: ACET-2247 PO (14:51)
[2020-09-15] MEDS ORDERED: AZITHROMYCIN 250 MG TABLET PO ONE (15:00)
[2020-09-15] MEDS ORDERED: CODE10LI PO (15:18)
== END 2020-09-15 15:39 | disposition home or self-care (01) ==
LOC: EDH 12:34
DX: J06.9 Acute upper respiratory infection, unspecified (principal); I25.10 Atherosclerotic heart disease of native coronary artery without angina pectoris; R09.02 Hypoxemia; N18.6 End stage renal disease; Z20.822 Contact with and (suspected) exposure to COVID-19; J44.9 Chronic obstructive pulmonary disease, unspecified; Z99.2 Dependence on renal dialysis
CPT/HCPCS: 36415; 36600; 71045; 80053; 82803; 83880; 84484; 85025; 86140; 87635; 87804 ×2; 93005; 99285; C9803

== ENCOUNTER → 2021-02-28 | Outpatient (CLI) | payer MEDICARE ==
[~2021-02-28] MED LIST changes: +ACET-2247 PO; +CEFU250T87 PO; +CODE10LI PO; +DICY20TA3 PO; +DOXY100C5 PO; -DOXY20TA3 PO; +FOLI0.8T22 PO; +HONEY 1 APPL/ML TUBE TP ONE; +LIDOCAINE HCL 4% LTA SOL 4 ML VIAL TP ONE
== END | disposition home or self-care (01) ==
LOC: WHH 08:29
PROVIDERS: ATTEND Family Medicine
DX: T81.89XA Other complications of procedures, not elsewhere classified, initial encounter (principal); S31.819A Unspecified open wound of right buttock, initial encounter; E11.22 Type 2 diabetes mellitus with diabetic chronic kidney disease; I13.2 Hypertensive heart and chronic kidney disease with heart failure and with stage 5 chronic kidney disease, or end stage renal disease; N18.6 End stage renal disease; I50.42 Chronic combined systolic (congestive) and diastolic (congestive) heart failure; I48.0 Paroxysmal atrial fibrillation; I42.0 Dilated cardiomyopathy; K21.9 Gastro-esophageal reflux disease without esophagitis; I27.20 Pulmonary hypertension, unspecified; K74.69 Other cirrhosis of liver; Q24.9 Congenital malformation of heart, unspecified; I25.10 Atherosclerotic heart disease of native coronary artery without angina pectoris; Z99.2 Dependence on renal dialysis; Z79.01 Long term (current) use of anticoagulants; Z79.899 Other long term (current) drug therapy; Z99.81 Dependence on supplemental oxygen; Z98.890 Other specified postprocedural states; Z95.818 Presence of other cardiac implants and grafts; Z86.711 Personal history of pulmonary embolism; X58.XXXA Exposure to other specified factors, initial encounter; Y93.89 Activity, other specified; Y83.8 Other surgical procedures as the cause of abnormal reaction of the patient, or of later complication, without mention of misadventure at the time of the procedure; Y92.238 Other place in hospital as the place of occurrence of the external cause
CPT/HCPCS: A4450; G0463

== ENCOUNTER → 2021-03-07 | Outpatient (CLI) | payer MEDICARE | END | disposition home or self-care (01) | LOC: WHH 09:43 | PROVIDERS: ATTEND Family Medicine | DX: T81.89XD Other complications of procedures, not elsewhere classified, subsequent encounter (principal); S31.819D Unspecified open wound of right buttock, subsequent encounter; E11.22 Type 2 diabetes mellitus with diabetic chronic kidney disease; I13.2 Hypertensive heart and chronic kidney disease with heart failure and with stage 5 chronic kidney disease, or end stage renal disease; N18.6 End stage renal disease; I50.42 Chronic combined systolic (congestive) and diastolic (congestive) heart failure; I48.0 Paroxysmal atrial fibrillation; I42.0 Dilated cardiomyopathy; K21.9 Gastro-esophageal reflux disease without esophagitis; I27.20 Pulmonary hypertension, unspecified; K74.69 Other cirrhosis of liver; Q24.9 Congenital malformation of heart, unspecified; I25.10 Atherosclerotic heart disease of native coronary artery without angina pectoris; Z99.2 Dependence on renal dialysis; Z79.01 Long term (current) use of anticoagulants; Z79.899 Other long term (current) drug therapy; Z99.81 Dependence on supplemental oxygen; Z98.890 Other specified postprocedural states; Z95.818 Presence of other cardiac implants and grafts; Z86.711 Personal history of pulmonary embolism; X58.XXXD Exposure to other specified factors, subsequent encounter; Y83.8 Other surgical procedures as the cause of abnormal reaction of the patient, or of later complication, without mention of misadventure at the time of the procedure | CPT/HCPCS: 11042; A4450 ==

== ENCOUNTER → 2021-03-21 | Outpatient (CLI) | payer MEDICARE ==
[~2021-03-21] MED LIST changes: -HONEY 1 APPL/ML TUBE TP ONE
== END | disposition home or self-care (01) ==
LOC: WHH 09:29
PROVIDERS: ATTEND Family Medicine
DX: T81.89XD Other complications of procedures, not elsewhere classified, subsequent encounter (principal); S31.819D Unspecified open wound of right buttock, subsequent encounter; E11.22 Type 2 diabetes mellitus with diabetic chronic kidney disease; I13.2 Hypertensive heart and chronic kidney disease with heart failure and with stage 5 chronic kidney disease, or end stage renal disease; N18.6 End stage renal disease; I50.42 Chronic combined systolic (congestive) and diastolic (congestive) heart failure; I48.0 Paroxysmal atrial fibrillation; I42.0 Dilated cardiomyopathy; K21.9 Gastro-esophageal reflux disease without esophagitis; I27.20 Pulmonary hypertension, unspecified; K74.69 Other cirrhosis of liver; Q24.9 Congenital malformation of heart, unspecified; I25.10 Atherosclerotic heart disease of native coronary artery without angina pectoris; Z99.2 Dependence on renal dialysis; Z79.01 Long term (current) use of anticoagulants; Z79.899 Other long term (current) drug therapy; Z99.81 Dependence on supplemental oxygen; Z98.890 Other specified postprocedural states; Z95.818 Presence of other cardiac implants and grafts; Z86.711 Personal history of pulmonary embolism; X58.XXXD Exposure to other specified factors, subsequent encounter; Y83.8 Other surgical procedures as the cause of abnormal reaction of the patient, or of later complication, without mention of misadventure at the time of the procedure
CPT/HCPCS: 17250

== ENCOUNTER → 2021-03-28 | Outpatient (CLI) | payer MEDICARE ==
[~2021-03-28] MED LIST changes: -LIDOCAINE HCL 4% LTA SOL 4 ML VIAL TP ONE
== END | disposition home or self-care (01) ==
LOC: WHH 09:00
PROVIDERS: ATTEND Family Medicine
DX: T81.89XD Other complications of procedures, not elsewhere classified, subsequent encounter (principal); S31.819D Unspecified open wound of right buttock, subsequent encounter; E11.22 Type 2 diabetes mellitus with diabetic chronic kidney disease; I13.2 Hypertensive heart and chronic kidney disease with heart failure and with stage 5 chronic kidney disease, or end stage renal disease; N18.6 End stage renal disease; I50.42 Chronic combined systolic (congestive) and diastolic (congestive) heart failure; I48.0 Paroxysmal atrial fibrillation; I42.0 Dilated cardiomyopathy; K74.69 Other cirrhosis of liver; Q24.9 Congenital malformation of heart, unspecified; K21.9 Gastro-esophageal reflux disease without esophagitis; I27.20 Pulmonary hypertension, unspecified; I25.10 Atherosclerotic heart disease of native coronary artery without angina pectoris; Z99.81 Dependence on supplemental oxygen; Z99.2 Dependence on renal dialysis; Z79.01 Long term (current) use of anticoagulants; Z79.899 Other long term (current) drug therapy; Z98.890 Other specified postprocedural states; Z95.818 Presence of other cardiac implants and grafts; Z86.711 Personal history of pulmonary embolism; X58.XXXD Exposure to other specified factors, subsequent encounter; Y83.8 Other surgical procedures as the cause of abnormal reaction of the patient, or of later complication, without mention of misadventure at the time of the procedure
CPT/HCPCS: G0463

== ENCOUNTER 2022-01-02 23:41 | Emergency (ER) | payer MEDICARE ==
[~2022-01-02] VITALS: Ht 170.2 cm; Wt 65.8 kg
[2022-01-03 00:15] VITALS: BP 109/38
== END 2022-01-03 00:30 | disposition home or self-care (01) ==
LOC: EDH 23:41
DX: T82.838A Hemorrhage due to vascular prosthetic devices, implants and grafts, initial encounter (principal); I48.91 Unspecified atrial fibrillation; K21.9 Gastro-esophageal reflux disease without esophagitis; Z88.6 Allergy status to analgesic agent; Z99.2 Dependence on renal dialysis; Y84.1 Kidney dialysis as the cause of abnormal reaction of the patient, or of later complication, without mention of misadventure at the time of the procedure
CPT/HCPCS: 99282

== ENCOUNTER 2022-07-14 21:46 | Emergency (ER) | payer MEDICARE ==
[~2022-07-14] VITALS: Ht 170.2 cm; Wt 67.6 kg
[2022-07-14 22:28] LABS: BASOPHILS % (AUTO) 0.9 % (0.0-5.0); LYMPHOCYTES % (AUTO) 13.8 % (21.0-51.0); MEAN CORPUSCULAR HEMOGLOBIN 31.8 pg (27.0-33.0); MEAN CORPUSCULAR HGB CONC 31.7 g/dL (32.0-36.0); MEAN CORPUSCULAR VOLUME 100.6 fL (79-99); MONOCYTES % (AUTO) 10.1 % (3.0-13.0); NEUTROPHILS % (AUTO) 68.9 % (40.0-77.0); PLATELET COUNT (AUTO) 168 K/uL (130-400); RED BLOOD CELL COUNT(AUTO) 3.58 MIL/uL (4.50-6.20); RED CELL DISTRIBUTION WIDTH 15.1 % (11.0-15.5); WHITE BLOOD COUNT (AUTO) 5.9 K/uL (4.8-10.8)
[2022-07-14 22:37] LABS: CREATININE 6.6 mg/dL (0.5-1.5); POTASSIUM 4.6 mmol/L (3.5-5.1)
[2022-07-14 22:41] LABS: ALBUMIN 3.2 g/dL (3.5-5.0); TOTAL PROTEIN, SERUM 8.8 g/dL (6.0-8.3)
[2022-07-15 00:26] VITALS: BP 118/70
== END 2022-07-15 01:23 | disposition home or self-care (01) ==
LOC: EDH 21:46
DX: R18.8 Other ascites (principal); R10.31 Right lower quadrant pain; I48.91 Unspecified atrial fibrillation; K21.9 Gastro-esophageal reflux disease without esophagitis; N28.1 Cyst of kidney, acquired; K74.60 Unspecified cirrhosis of liver; R22.41 Localized swelling, mass and lump, right lower limb; K40.90 Unilateral inguinal hernia, without obstruction or gangrene, not specified as recurrent; Z79.899 Other long term (current) drug therapy; Z98.890 Other specified postprocedural states; Z88.6 Allergy status to analgesic agent
CPT/HCPCS: 36415; 74176; 76882; 80053; 83690; 85025

== ENCOUNTER → 2023-01-06 | Outpatient (CLI) | payer MEDICARE | END | disposition home or self-care (01) | LOC: RAH 13:03 | PROVIDERS: ATTEND Internal Medicine Critical Care Medicine | DX: I08.3 Combined rheumatic disorders of mitral, aortic and tricuspid valves (principal); I11.9 Hypertensive heart disease without heart failure; G47.34 Idiopathic sleep related nonobstructive alveolar hypoventilation | CPT/HCPCS: 93306 ==

== ENCOUNTER → 2023-09-10 | Outpatient (CLI) | payer MEDICARE ==
[~2023-09-10] MED LIST changes: -CODE10LI PO; +CODE10LI2 PO
== END | disposition home or self-care (01) ==
LOC: SHCH 09:51
PROVIDERS: ATTEND Internal Medicine Cardiovascular Disease
DX: I70.293 Other atherosclerosis of native arteries of extremities, bilateral legs (principal); I87.2 Venous insufficiency (chronic) (peripheral)
CPT/HCPCS: 93925; 93970

== ENCOUNTER 2023-12-13 10:13 | Emergency (ER) | payer MEDICARE ==
[~2023-12-13] VITALS: Ht 170.2 cm; Wt 66.7 kg
[2023-12-13 10:43] LABS: BASOPHILS # (AUTO) 0.01 K/uL (0.00-0.20); BASOPHILS % (AUTO) 0.2 % (0.0-5.0); EOSINOPHILS # (AUTO) 0.09 K/uL (0.00-0.70); EOSINOPHILS % (AUTO) 2.1 % (0.0-8.0); HEMATOCRIT 36.6 % (42-54); IMMATURE GRANULOCYTE ABSOLUTE 0.01 K/uL (0-1); LYMPHOCYTES # (AUTO) 0.3 K/uL (1.0-4.8); LYMPHOCYTES % (AUTO) 6.4 % (21.0-51.0); MEAN CORPUSCULAR HGB CONC 33.1 g/dL (32.0-36.0); MEAN CORPUSCULAR VOLUME 102.8 fL (79-99); MONOCYTES # (AUTO) 0.2 K/uL (0.1-1.0); MONOCYTES % (AUTO) 4.6 % (3.0-13.0); NEUTROPHILS # (AUTO) 3.8 K/uL (1.8-7.7); NEUTROPHILS % (AUTO) 86.5 % (40.0-77.0); PLATELET COUNT (AUTO) 160 K/uL (130-400); RED BLOOD CELL COUNT(AUTO) 3.56 MIL/uL (4.50-6.20); RED CELL DISTRIBUTION WIDTH 14.5 % (11.0-15.5); WHITE BLOOD COUNT (AUTO) 4.4 K/uL (4.8-10.8)
[2023-12-13] MEDS: ondanSETRON 4MG INJ IVP STA (10:48)
[2023-12-13] MEDS: FAMOTIDINE 20MG VIAL IV STA (10:48)
[2023-12-13 10:50] LABS: POTASSIUM 4.8 mmol/L (3.5-5.1)
[2023-12-13 10:55] LABS: BILIRUBIN,TOTAL 0.7 mg/dL (0.2-1.0); TOTAL PROTEIN, SERUM 8.7 g/dL (6.0-8.3)
[2023-12-13 11:00] LABS: CREATININE 10.3 mg/dL (0.5-1.3)
[2023-12-13] MEDS ORDERED: FAMO-136 PO (12:38)
[2023-12-13 13:03] VITALS: BP 95/56; PULSE 100; RESP 20; TEMP 99.1; O2SAT 96
== END 2023-12-13 13:05 | disposition home or self-care (01) ==
LOC: EDH 10:13
DX: K52.9 Noninfective gastroenteritis and colitis, unspecified (principal); I12.0 Hypertensive chronic kidney disease with stage 5 chronic kidney disease or end stage renal disease; E11.22 Type 2 diabetes mellitus with diabetic chronic kidney disease; N18.6 End stage renal disease; I25.10 Atherosclerotic heart disease of native coronary artery without angina pectoris; I48.91 Unspecified atrial fibrillation; Z88.6 Allergy status to analgesic agent; Z95.1 Presence of aortocoronary bypass graft; Z99.2 Dependence on renal dialysis; Z98.890 Other specified postprocedural states
CPT/HCPCS: 99285; 96374; 71045; 80053; 83690; 85025; 36415; 93005; J3490; J2405

== ENCOUNTER → 2024-04-02 | Outpatient (CLI) | payer MEDICARE ==
[~2024-04-02] MED LIST changes: -ACET-2247 PO; +ATOR-2 PO; -CEFU250T87 PO; -CODE10LI2 PO; -DOXY100C5 PO; +ESOM40CA66 PO; +FAMO40TA7 PO; -FOLI0.8T22 PO; -FOLI1TAB61 PO; -MACI10TA PO; -NITR0.4T50 SL; -OMEP40CA21 PO; +PANT40TA54 PO; +PRED10TA23 PO; -SEVE800T7 PO
--- NOTE | 2024-04-04 09:02 | HMCSR ---
APPROVED REPORT Laterality: Bilateral Indications g45.9 Doppler Spectral Velocity Analysis PSV / EDVPSV / EDV ECA (R) 87 / cm/sECA (L) 110 / cm/s dICA (R) 118 / 38 cm/sdICA (L) 104 / 34 cm/s Jair (R) 103 / 44 cm/smICA (L) 104 / 47 cm/s pICA (R) 83 / 25 cm/spICA (L) 87 / 23 cm/s dCCA (R) 70 / 22 cm/sdCCA (L) 115 / 28 cm/s mCCA (R) 100 / 15 cm/smCCA (L) 127 / 19 cm/s pCCA (R) 106 / 19 cm/spCCA (L) 132 / 23 cm/s Vert (R) Vert (L) 84 / cm/s Subl. (R) Subl. (L) 191 / cm/s ICA/CCA 1.11ICA/CCA 0.79 Technologist Impression Minimal to mild plaque noted in the bilateral carotids. Right and Left ICA appear patent, without hemodynamic significance. Right vertebral artery waveform demonstrates retrograde flow. Subclavian artery not seen well due to bandage, although monophasic waveforms displayed in the right brachial artery. Left vertebral artery appears antegrade. Conclusion Minimal plaque noted in the bilateral carotids, without hemodynamic significance. Bilateral vertebral arteries appear antegrade. Conclusion Minimal plaque noted in the bilateral carotids, without hemodynamic significance. Bilateral vertebral arteries appear antegrade.
== END | disposition home or self-care (01) ==
LOC: SHCH 08:03
PROVIDERS: ATTEND Internal Medicine Cardiovascular Disease
DX: G45.9 Transient cerebral ischemic attack, unspecified (principal)
CPT/HCPCS: 93880